=== PATIENT | female | born 1970 | race American Indian/Alaskan Native ===

== ENCOUNTER 2016-06-16 06:08 | Day surgery (SDC) | payer MEDICAID ==
[2016-06-11 10:47] LABS: Basophils % (Auto) 0.6 % (0.0-1.8); Eosinophils % (Auto) 0.8 % (0.0-4.3); Hematocrit 34.8 % (30.3-42.9); Hemoglobin 11.2 gm/dl (10.1-14.3); Mean Corpuscular HGB Conc 32 % (30-34); Mean Corpuscular Volume 77 fl (79-97); Platelet Count 262 K/mm3 (140-440); Red Cell Distribution Width 14.6 % (13.2-15.2); White Blood Count 4.7 K/mm3 (4.5-11.0)
[2016-06-11 10:48] LABS: Mean Corpuscular Hemoglobin 25 pg (28-32)
--- NOTE | 2016-06-11 10:51 | Anesthesia Consultation ---
Anesthesia Consult and Med Hx Date of service: 06/16/16 - Airway Anesthetic Teeth Evaluation: Good ROM Head & Neck: Adequate Mental/Hyoid Distance: Adequate Mallampati Class: Class I Intubation Access Assessment: Good - Pulmonary Exam CTA: Yes - Cardiac Exam Cardiac Exam: RRR - Pre-Operative Health Status ASA Pre-Surgery Classification: ASA1 Proposed Anesthetic Plan: General - Cardiovascular System Hx Hypertension: No (Has been monitoring, but no proper diagnosis) Hx Heart Murmur: Yes (None detected during consult.) - Central Nervous System Hx Psychiatric Problems: No - Endocrine Hx Non-Insulin Dependent Diabetes: No Hx Thyroid Disease: Yes (THYROID NODULE) - Hematic Hx Anemia: Yes - Other Systems Hx Cancer: No - Additional Comments Anesthesia Medical History Comments: No previous anesthesia complicaitons.
--- NOTE | 2016-06-15 16:56 | Short Stay Summary ---
Short Stay Documentation Date of service: 06/16/16 Narrative H&P: 45y/o with dysfunctional uterine bleeding. Endometrial biopsy revealed evidence of polyps. Ultrasound demonstrated small myomas. The patient has attempted medical management without success. She has elected for surgical management of her symptoms. Patient has been reassessed/reevaluated/re-examined. H&P has been reviewed. No interval changes. - History Principal diagnosis: DUB H&P: obtained from office Past Medical History: No medical history Past Surgical History: tonsillectomy, Other (tubal ligation) Social history: single - Allergies and Medications Current Medications: Allergies No Known Allergies Allergy (Unverified 04/22/16 15:43) Home Medications Medication Instructions Recorded Confirmed Last Taken Type Cholecalciferol (Vitamin D3) 2,000 unit PO QDAY 04/22/16 06/09/16 04/25/16 History [Vitamin D3] Ergocalciferol [Vitamin D2] 1 cap PO QWEEK 04/22/16 06/09/16 04/23/16 History Ferrous Sulfate [Feosol] 325 mg PO BID 04/22/16 06/09/16 04/25/16 History Loratadine [Claritin] 10 mg PO QHS PRN 04/22/16 06/09/16 04/24/16 History Active Medications Famotidine (Pepcid) 20 mg IV PREOP NR Stop: 06/16/16 23:59 Sodium Chloride (Nacl 0.9% 1000 Ml) 1,000 mls @ 75 mls/hr IV DIRECT KATELYN Stop: 06/16/16 23:59 Midazolam HCl (Versed) 2 mg IV PREOP PRN PRN Reason: Agitation Stop: 06/16/16 23:59 - Physical exam General appearance: no acute distress Integumentary: no rash HEENT: Atraumatic Lungs: Clear to auscultation Breasts: deferred Heart: Regular rate Gastrointestinal: normal Female Genitourinary: deferred Rectal Exam: deferred Extremities: no ischemia, pulses intact Neurological: Normal gait - Brief post op/procedure progress note Date of procedure: 06/16/16 Pre-op diagnosis: dysfunctional uterine bleeding; endometrial polyp Post-op diagnosis: same Procedure: hysteroscopy dilation and curettage polypectomy endometrial ablation via Novasure Anesthesia: GETA Surgeon: SAMANTHA TRAN Estimated blood loss: minimal Pathology: list (endometrial polyp; endometrial curettings) Specimen disposition: to lab Condition: stable - Hospital course Hospital course: She was admitted the day of surgery and underwent a hysteroscopy D&C Marlen. Please see operative note for details of surgery. Her postoperative course was uneventful. - Disposition Condition at discharge: Good Disposition: DISCHARGED TO HOME OR [facility]ELFCARE Short Stay Discharge Plan Activity: other (pelvic rest for one week) Diet: regular Additional Instructions: followup with Dr Cleveland in 2-4 weeks Prescriptions: Ibuprofen [Motrin] 800 mg PO Q8HR PRN #60 tablet PRN Reason: Pain oxyCODONE /ACETAMINOPHEN [Percocet 5/325] 1 tab PO Q6HR PRN #30 tablet PRN Reason: Pain
[~2016-06-16 06:08] MED LIST: NACL 0.9% 1000 ML 1,000 ML IV SCH; PEPCID IV NR
[2016-06-16] MEDS ORDERED: NACL BACTERIOSTATIC INFILTRATI ONE (06:37)
[2016-06-16] MEDS: VERSED IV PRN ×2 (07:03→07:32)
--- NOTE | 2016-06-16 07:16 | Anesthesia Day of Surgery ---
Anesthesia Day of Surgery - Day of Surgery Patient Examined: Yes Patient H&P Reviewed: Yes Patient is NPO: Yes
[2016-06-16] MEDS ORDERED: TRANSDERM-SCOP TD NR (07:28)
[2016-06-16] MEDS ORDERED: DIPRIVAN 10 MG/ML IV ONE (07:39)
[2016-06-16] MEDS ORDERED: DILAUDID ONE (07:39)
[2016-06-16] MEDS ORDERED: XYLOCAINE MPF 2% ONE (07:39)
[2016-06-16] MEDS ORDERED: ZOFRAN ONE (08:12)
[2016-06-16] MEDS ORDERED: DECADRON ONE (08:12)
[2016-06-16] MEDS ORDERED: SILVER NITRATE TP ONE (08:20)
[2016-06-16] MEDS ORDERED: NACL 0.9% IR ONE (08:20)
--- NOTE | 2016-06-16 08:46 | Operative Report ---
Operative Report Operative Report: Date of procedure: 06/16/2016 Pre-operative diagnosis: Dysfunctional uterine bleeding; endometrial polyp Post-operative diagnosis: Same as above Procedure name(s): Hysteroscopy; dilatation and curettage; polypectomy; endometrial ablation via NovaSure Surgeon: Radha Yeager M.D. 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 endotracheal anesthesia Findings thickened endometrium with findings of an endometrial polyp on the anterior surface of the endometrial cavity Indication: Is 45-year-old with a history of dysfunctional uterine bleeding. A in endometrial biopsy was performed that demonstrated evidence of endometrial polyp. Procedure The patient was taken to the operating room and given general tracheal anesthesia without complication. The patient was prepped and draped in a normal sterile fashion. A bivalve speculum was placed in the patient's vagina single-tooth tenaculums placed on the anterior lip of the cervix. The cervical os was dilated with graduated dilators. A uterine sound was inserted. The hysteroscope was then placed. Insufflation of the uterine cavity was performed with normal saline. Gen. survey of the uterine cavity revealed a thickened endometrium with findings of endometrial polyp on the anterior surface of the endometrial cavity. The hysteroscope was then removed. Polyp forceps were placed through the dilated cervical os. The polyp was grasped with forceps and removed. A sharp curettage of the endometrial surface was performed. The NovaSure device was then inserted. The endometrial length was 0.5 cm and the uterine width was 2.7 cm. The device was engaged and it passed the surveillance of the uterine cavity. The NovaSure device was then deployed with a energy of and a 7 that lasted for 76 seconds. The NovaSure device was then removed. The hysteroscope was again reinserted. There was evidence of charring of the endometrial surface. The remainder of the vaginal instruments were then removed atraumatically. The patient was then successfully extubated taken to the recovery room. All sponge laps and needle counts were correct 2.
[2016-06-16] MEDS ORDERED: DILAUDID IV PRN (08:56)
[2016-06-16] MEDS ORDERED: PERCOCET 5/325 PO PRN (08:56)
--- NOTE | 2016-06-16 08:58 | Post Anesthesia Evaluation ---
- Post Anesthesia Evaluation Patient Participated: Yes Airway Patent: Yes Stable Respiratory Function: Yes Nausea/Vomiting: No Temp > 96.8F: Yes Pain Manageable: Yes Adequeate Hydration: Yes Anesthesia Complications: No Block Receding Appropriately: Not Applicable Patient on Ventilator: No
[2016-06-16 10:33] VITALS: BP 126/78
== END 2016-06-16 10:23 | disposition home or self-care (01) ==
LOC: OR 06:08
PROVIDERS: ATTEND Obstetrics & Gynecology
DX: N84.0 Polyp of corpus uteri (principal); D64.9 Anemia, unspecified; Z98.51 Tubal ligation status; Z98.890 Other specified postprocedural states
CPT/HCPCS: 36415; 58563; 84703; 85025; 88305; A4217; J1100; J1170; J2250; J2405; J2704; J7030